=== PATIENT | female | born 1955 | race Caucasian/White ===

== ENCOUNTER → 2018-01-15 16:40 | Outpatient (CLI) | payer BC ==
[2014-11-28 20:53] VITALS: BMI 40.6
[~2018-01-15 16:40] MED LIST: ASPIRIN325 MG PO; COZAAR50 MG PO; PRILOSEC20 MG PO; TENORMIN50 MG PO
== END | disposition home or self-care (01) ==
LOC: D.MAMMO 11-13 08:30
DX: Z12.31 Encounter for screening mammogram for malignant neoplasm of breast (principal)

== ENCOUNTER 2019-03-25 08:00 | Outpatient (CLI) | payer BC ==
[2014-11-28 20:53] VITALS: BMI 40.6
== END 2019-03-25 09:00 | disposition home or self-care (01) ==
LOC: D.MAMMO 08:00
PROVIDERS: ATTEND Emergency Medicine
DX: Z12.31 Encounter for screening mammogram for malignant neoplasm of breast (principal)

== ENCOUNTER 2019-04-23 06:15 | Observation (INO) | payer BC ==
[~2019-04-23] VITALS: Ht 167.6 cm; Wt 112.5 kg
[2019-04-23] MEDS ORDERED: ZOLOFT50 MG PO (06:36)
[2019-04-23] MEDS ORDERED: TENORMIN100 MG PO (06:37)
[2019-04-23] MEDS ORDERED: HYDROCHLOROTH12.5 M1 PO (06:37)
[2019-04-23 06:45] VITALS: BP 157/81
[2019-04-23 06:57] LABS: BASOPHILS 0.5 % (0-2); EOSINOPHILS 1.3 % (0-7); HEMATOCRIT 42.4 % (36.0-48.0); HEMOGLOBIN 13.9 g/dL (12-16); IMMATURE GRANULOCYTES 0.2 % (0-5); LYMPHOCYTES 30.9 % (15-50); MCH 29.8 pg (26.0-34.0); MCHC 32.8 g/dL (31.0-37.0); MCV 90.8 fL (80.0-100.0); MEAN PLATELET VOLUME 10.2 fL (7.4-10.4); MONOCYTES 10.5 % (2-11); NEUTROPHILS 56.6 % (40-80); PLATELET COUNT 218 10x3/uL (130-400); RBC 4.67 10x6/uL (4.00-5.40); RDW 13.3 % (11.5-14.5); WBC 8.4 10x3/uL (4.8-10.8)
[2019-04-23 07:06] LABS: APTT 24.7 SECONDS (22.8-39.4); INR 1.01 (0.85-1.17); PROTIME 12.8 SECONDS (11.6-15.0)
[2019-04-23 07:10] VITALS: BP 172/71
[2019-04-23 07:11] LABS: ALBUMIN 3.4 g/dL (3.4-5.0); ALKALINE PHOSPHATASE 103 U/L (46-116); ALT (SGPT) 21 U/L (10-68); BILIRUBIN - TOTAL 0.28 mg/dL (0.2-1.3); CALC OSMOLALITY 284 mosm/kg (275-300); CARBON DIOXIDE 33.8 mmol/L (21.0-32.0); CHLORIDE - SERUM 102 mmol/L (98-107); CREATININE - SERUM 1.1 mg/dL (0.6-1.3); GLUCOSE 120 mg/dL (74-106); PROTEIN - SERUM 6.8 g/dL (6.4-8.2); SODIUM 141 mmol/L (136-145); UREA NITROGEN 22 mg/dL (7-18); eGFR NON AFRICAN AMERICAN 53 mL/min (90-120)
[2019-04-23 07:22] LABS: CKMB 1.1 U/L (0.0-3.6); CREATINE KINASE 49 UL (21-215); MAGNESIUM - SERUM 2.1 mg/dL (1.8-2.4); TROPONIN-I < 0.017 ng/mL (0.000-0.060)
[2019-04-23 07:31] VITALS: BP 164/87
--- NOTE | 2019-04-23 07:39 | NUR ---
[facility] CONTACTED RE: PT GLASSES. STATES EMS HAD THEM PRIOR TO TRANSPORT TO ED ET THEY ARE NOT IN ED AT THIS TIME. [facility] DISPATCH WILL CONTACT TRUCK AND HAVE THEM LOOK.
--- NOTE | 2019-04-23 07:40 | NUR ---
PT STATES THAT SHE WAS WALKING TO [employer] ROOM AT 0505 THIS AM. STATES WHILE SITTING ON TOILET SHE NOTED A SUDDEN ONSET OF L ARM/L LEG NUMBNESS, WEAKNESS, ET HEAVINESS. STATES WAS UNABLE TO SPRING TACKER WITH L HAND TO PULL UP PANTS. PT SCORED 2 ON NIHSS BY DORINDA NEUROLOGIST.
--- NOTE | 2019-04-23 07:51 | NUR ---
[facility] CALLS ET THEY DO HAVE PT GLASSES. THEY WILL RETURN THEM TO PT AROUND 0900 TODAY.
[2019-04-23 10:58] VITALS: BMI 40.1
[2019-04-23 11:22] LABS: CKMB 0.9 U/L (0.0-3.6); CREATINE KINASE 56 UL (21-215); MAGNESIUM - SERUM 2.1 mg/dL (1.8-2.4); PHOSPHOROUS 4.2 mg/dL (2.5-4.9)
[2019-04-23 11:24] LABS: TROPONIN-I < 0.017 ng/mL (0.000-0.060)
[2019-04-23] MEDS ORDERED: OMEPRAZOLE20 M1 PO (11:37)
[2019-04-23] MEDS ORDERED: LIPITOR20 MG PO (11:38)
--- NOTE | 2019-04-23 13:17 | NUR ---
PT LYING IN BED AAO X4 TO PERSON, PLACE, TIME, AND SITUATION. STATES SHE HAS SOME SLIGHT NUMBNESS IN HER L JAW. DENEIS ANY WEAKNESS, TINGLING, OR NUMBESS ANYWHERE ELSE CL IN REACH. SIDE RAILS UP X3 FOR PT SAEFTY. BED IN LOWEST POSITION.
[2019-04-23 17:04] LABS: CKMB 0.7 U/L (0.0-3.6); CREATINE KINASE 48 UL (21-215)
[2019-04-23 17:14] LABS: TROPONIN-I < 0.017 ng/mL (0.000-0.060)
[2019-04-23 18:35] VITALS: BP 117/44
[2019-04-23 20:00] VITALS: BP 118/70
--- NOTE | 2019-04-23 20:00 | NUR ---
ALERT AND ORIENTIATED SITTING UP IN BED, MOVES ALL EXTREMITIES WELL, LEFT HAND LOADER MACHINE SIGHTLY WEAKER THAN RIGHT, SPEECH CLEAR, DENIES PAIN, SEE SHIFT ASSESSMENT, CALL LIGHT IN REACH
[2019-04-23 22:46] LABS: CKMB 0.5 U/L (0.0-3.6); CREATINE KINASE 44 UL (21-215); TROPONIN-I < 0.017 ng/mL (0.000-0.060)
[2019-04-24] VITALS: BP 122/84
[2019-04-24 04:00] VITALS: BP 117/47
[2019-04-24 05:11] LABS: BASOPHILS 0.6 % (0-2); EOSINOPHILS 2.3 % (0-7); HEMOGLOBIN 14.3 g/dL (12-16); IMMATURE GRANULOCYTES 0.3 % (0-5); LYMPHOCYTES 33.9 % (15-50); MCH 30.3 pg (26.0-34.0); MCHC 33.3 g/dL (31.0-37.0); MCV 91.1 fL (80.0-100.0); MEAN PLATELET VOLUME 10.5 fL (7.4-10.4); MONOCYTES 9.6 % (2-11); NEUTROPHILS 53.3 % (40-80); PLATELET COUNT 231 10x3/uL (130-400); RBC 4.72 10x6/uL (4.00-5.40); RDW 13.4 % (11.5-14.5); WBC 6.9 10x3/uL (4.8-10.8)
[2019-04-24 06:01] LABS: ALBUMIN 3.2 g/dL (3.4-5.0); ANION GAP 11.3 mmol/L (8-16); BILIRUBIN - TOTAL 0.26 mg/dL (0.2-1.3); CALCIUM 9.2 mg/dL (8.5-10.1); CARBON DIOXIDE 32.2 mmol/L (21.0-32.0); CHOL - HDL RATIO 2.7 ratio (2.3-4.1); CREATININE - SERUM 1.1 mg/dL (0.6-1.3); LDL-HDL RATIO 1.2 ratio (1.5-3.5); PROTEIN - SERUM 6.5 g/dL (6.4-8.2)
[2019-04-24 06:10] LABS: POTASSIUM - SERUM 3.5 mmol/L (3.5-5.1)
[2019-04-24 09:38] VITALS: BP 146/63
--- NOTE | 2019-04-24 10:53 | MORECARE ---
CASE MANAGEMENT DISCHARGE SUMMARY PATIENT: IDALIA PRADO UNIT: [id number] ADM DATE: 04/23/19 AGE: 63 : 59 SEX: F ROOM/BED: D.2228 AUTHOR: LATESHA FLORENCE PHYSICIAN: REFERRING PHYSICIAN: ANGEL ASHBY MD DATE OF SERVICE: 04/24/19 Discharge Plan Patient Name: IDALIA PRADO [facility] [facility] 1955 Planned Disposition: Home Anticipated Discharge Date: Discharge Date: Expected LOS: Initial Reviewer: [email or web address] Initial Review Date: 04/24/2019 Generated: 04/24/19 11:52 am DCPIA - Discharge Planning Initial Assessment Updated by [email or web address]: Olivia Chow on 04/24/19 10:51 am * Is the patient Alert and Oriented? Yes * How many steps to enter\exit or inside your home? 3/0 * PCP Dr. Jasmyn Mazariegos * Pharmacy [facility] * Preadmission Environment Home Alone * ADLs Independent * Equipment None * List name and contact numbers for known caregivers / representatives who currently or will assist patient after discharge: Marcell Prado - son - [phone] Henny Flores - sister - [phone] * Verbal permission to speak to the caregivers and representatives has been obtained from the patient. Yes * Community resources currently utilized None * Additional services required to return to the preadmission environment? No * Can the patient safely return to the preadmission environment? Yes * Has this patient been hospitalized within the prior 30 days at any hospital? No Patient Name: IDALIA PRADO Page [id number] at 1053 All edits/amendments must be made on the electronic document DICTATION DATE: 04/24/19 105 HUNTER TRAPPER: GIOVANNY 04/24/19 105 RPT#: [id number] DC DATE: STATUS: ADM IN [facility] [address] [place] [address] END OF REPORT
[2019-04-24 10:57] VITALS: Ht 167.6 cm; Wt 112.5 kg
--- NOTE | 2019-04-24 11:00 | MORECARE ---
CASE MANAGEMENT DISCHARGE SUMMARY PATIENT: IDALIA PRADO UNIT: [id number] ADM DATE: 04/23/19 AGE: 63 : 59 SEX: F ROOM/BED: D.2228 AUTHOR: LUDIVINA,DOC PHYSICIAN: REFERRING PHYSICIAN: ANGEL ASHBY MD DATE OF SERVICE: 04/24/19 Discharge Plan Patient Name: IDALIA PRADO Facility: [facility]:[place] : 1955 Planned Disposition: Home Anticipated Discharge Date: Discharge Date: Expected LOS: Initial Reviewer: [email or web address] Initial Review Date: 04/24/2019 Generated: 04/24/19 12:00 pm Comments DCP- Discharge Planning Updated by [email or web address]: Olivia Chow on 04/24/19 9:[address] Patient Name: IDALIA PRADO Admission Status: ER Accout number: [id number] Admission Date: 04-23-2019 : 1955 Admission Diagnosis: Attending: SYMONE, Current LOS: 1 Anticipated DC Date: Planned Disposition: Home Primary Insurance: [employer] O Discharge Planning Comments: CM met with patient to complete initial dc planning assessment. CM educated patient on the CM role and verbal consent given by patient to complete assessment. Patient lives at home alone. At discharge patient plans to return and feels this is a safe discharge. CM discussed availability of home health, rehab services, and medical equipment. Patient denied known discharge needs at this time. States her sister lives next door and "a lot of my family live close by". States one of her family members will take her home on discharge. CM will continue to follow and will assist as needed with dc plans/needs. Educational Guidance Counselor: Olivia Chow DCPIA - Discharge Planning Initial Assessment Updated by [email or web address]: Olivia Chow on 04/24/19 10:51 am * Is the patient Alert and Oriented? Yes * How many steps to enter\\exit or inside your home? 3/0 * PCP Dr. Jasmyn Mazariegos * Pharmacy [facility] * Preadmission Environment Home Alone * ADLs Independent * Equipment None * List name and contact numbers for known caregivers / representatives who currently or will assist patient after discharge: Marcell Prado - [facility] - [phone] Henny Flores [facility] - [phone] * Verbal permission to speak to the caregivers and representatives has been obtained from the patient. Yes * Community resources currently utilized None * Additional services required to return to the preadmission environment? No * Can the patient safely return to the preadmission environment? Yes * Has this patient been hospitalized within the prior 30 days at any hospital? No Last DP export: 04/24/19 9:53 a Patient Name: IDALIA PRADO Page [id number] at 1100 All edits/amendments must be made on the electronic document DICTATION DATE: 04/24/191058 FINGERPRINT TECHNICIAN: GIOVANNY 04/24/191058 RPT#: [id number] DC DATE: STATUS: ADM IN [address] [place] [address] END OF REPORT
[2019-04-24] MEDS ORDERED: CLARITIN 10 MG10 MG PO (11:06)
[2019-04-24] MEDS ORDERED: ASPIRIN81 MG PO (11:06)
[2019-04-24 13:22] LABS: % SATURATION 13 % (15-55); IRON 42 ug/dl (35-150); TOTAL IRON BIND CAPACITY 307 ug/dl (260-445); UNSAT IRON BIND CAPACITY 265 ug/dl (150-375)
[2019-04-24 13:35] LABS: FERRITIN 138 ng/mL (3-244); LDH 261 U/L (81-234)
[2019-04-24 14:11] VITALS: BP 113/56
--- NOTE | 2019-04-24 14:54 | NUR ---
PT RESTING IN BED. NO SIGNS OF DISTRESS. IV TO RIGHT AC PATENT NO REDNESS OR TENDERNESS. ON TELEMETRY 59 SB. DENIES ANY FUTHER NEED AT THIS TIME. CALL LIGHT IN REACH. BED LOW POSITION. NO FAMILY AT BEDSIDE AT THIS TIME.
--- NOTE | 2019-04-24 15:32 | NUR ---
DISCHARGE INSTRUCTIONS GIVEN. SEEMS TO UNDERSTAND. IV OUT TIP INTACT. TELEMETRY OFF. LEFT WITH HOSPITAL STAFF TO GO HOME IN PERSONAL RIDE.
--- NOTE | 2019-04-24 18:34 | NUR ---
OT NOTE: PT COMPLETED BED MOB WITH SPV. PT COMPLETED ADL MOB WITH SBA/CGA. PT COMPLETED ORAL CARE AND HAIR GROOMING STANDING AT SINK WITH SBA/CGA. THANK YOU,LOU MERLOS
--- NOTE | 2019-04-25 11:57 | MORECARE ---
CASE MANAGEMENT DISCHARGE SUMMARY PATIENT: IDALIA PRADO UNIT: [id number] ADM DATE: 04/23/19 AGE: 63 : 59 SEX: F ROOM/BED: D.2228 AUTHOR: LUDIVINA,DOC PHYSICIAN: REFERRING PHYSICIAN: ANGEL ASHBY MD DATE OF SERVICE: 04/25/19 Discharge Plan Patient Name: IDALIA PRADO Facility: [facility]:[place] : 1955 Planned Disposition: Home Anticipated Discharge Date: Discharge Date: 04/24/2019 Expected LOS: 0 Initial Reviewer: [email or web address] Initial Review Date: 04/24/2019 Generated: 04/25/19 12:57 pm Comments DCP- Discharge Planning Updated by [email or web address]: Olivia Chow on 04/24/19 9:[address] Patient Name: IDALIA PRADO Admission Status: ER Accout number: [id number] Admission Date: 04-23-2019 : 1955 Admission Diagnosis: Attending: SYMONE, Current LOS: 1 Anticipated DC Date: Planned Disposition: Home Primary Insurance: [employer] [facility] Discharge Planning Comments: CM met with patient to complete initial dc planning assessment. CM educated patient on the CM role and verbal consent given by patient to complete assessment. Patient lives at home alone. At discharge patient plans to return and feels this is a safe discharge. CM discussed availability of home health, rehab services, and medical equipment. Patient denied known discharge needs at this time. States her sister lives next door and "a lot of my family live close by". States one of her family members will take her home on discharge. CM will continue to follow and will assist as needed with dc plans/needs. Explosive Specialist: Olivia Chow DCPIA - Discharge Planning Initial Assessment Updated by [email or web address]: Olivia Chow on 04/24/19 10:51 am * Is the patient Alert and Oriented? Yes * How many steps to enter\\exit or inside your home? 3/0 * PCP Dr. Jasmyn Mazariegos * Pharmacy [facility] * Preadmission Environment Home Alone * ADLs Independent * Equipment None * List name and contact numbers for known caregivers / representatives who currently or will assist patient after discharge: Marcell Prado - son - [phone] Henny Flores - sister - [phone] * Verbal permission to speak to the caregivers and representatives has been obtained from the patient. Yes * Community resources currently utilized None * Additional services required to return to the preadmission environment? No * Can the patient safely return to the preadmission environment? Yes * Has this patient been hospitalized within the prior 30 days at any hospital? No Last DP export: 04/24/19 10:00 a Patient Name: IDALIA PRADO Page 04035 at 1157 All edits/amendments must be made on the electronic document DICTATION DATE: 04/25/191156 GLUING CREW LEADER: GIOVANNY 04/25/19 1157 RPT#: [id number] DC DATE:04/24/19 STATUS: DIS IN [facility] [address] [place] [address] END OF REPORT
== END 2019-04-24 15:33 | disposition home or self-care (01) ==
LOC: D.ER 06:15 → D.MS 08:38 → OBSVTIME 08:38 → D.MS 08:38
PROVIDERS: Family Medicine; ADMIT Family Medicine; ATTEND Family Medicine
DX: R47.1 Dysarthria and anarthria (principal); I10 Essential (primary) hypertension; F32.9 Major depressive disorder, single episode, unspecified; R53.1 Weakness

== ENCOUNTER → 2020-06-02 20:43 | Outpatient (CLI) | payer MEDICAID ==
[2019-04-24 10:57] VITALS: BMI 40.0
[~2020-06-02 20:43] MED LIST changes: +ASPIRIN81 MG PO; +CLARITIN 10 MG10 MG PO; +HYDROCHLOROTH12.5 M1 PO; +LIPITOR20 MG PO; +OMEPRAZOLE20 M1 PO; +TENORMIN100 MG PO; +ZOLOFT50 MG PO
== END | disposition home or self-care (01) ==
LOC: D.MAMMO 05-19 11:30
PROVIDERS: ATTEND Emergency Medicine
DX: Z12.31 Encounter for screening mammogram for malignant neoplasm of breast (principal)

== ENCOUNTER 2020-06-16 22:17 | Emergency (ER) | payer MEDICAID ==
[~2020-06-16] VITALS: Ht 167.6 cm; Wt 113.6 kg
[2020-06-16 22:22] VITALS: Ht 167.6 cm; Wt 113.6 kg
[2020-06-16 23:01] LABS: BASOPHILS 0.3 % (0-2); EOSINOPHILS 0.5 % (0-7); HEMATOCRIT 42.6 % (36.0-48.0); HEMOGLOBIN 13.9 g/dL (12-16); IMMATURE GRANULOCYTES 0.2 % (0-5); LYMPHOCYTES 14.3 % (15-50); MCH 30.3 pg (26.0-34.0); MCHC 32.6 g/dL (31.0-37.0); MCV 92.8 fL (80.0-100.0); MEAN PLATELET VOLUME 10.6 fL (7.4-10.4); MONOCYTES 5.9 % (2-11); NEUTROPHILS 78.8 % (40-80); PLATELET COUNT 237 10x3/uL (130-400); RBC 4.59 10x6/uL (4.00-5.40); RDW 13.1 % (11.5-14.5); WBC 9.9 10x3/uL (4.8-10.8)
[2020-06-16 23:10] LABS: INR 0.96 (0.85-1.17); PROTIME 12.7 SECONDS (11.6-15.0)
[2020-06-16 23:12] LABS: CALC OSMOLALITY 290 mosm/kg (275-300); CALCIUM 9.8 mg/dL (8.5-10.1); CARBON DIOXIDE 31.6 mmol/L (21.0-32.0); CHLORIDE - SERUM 106 mmol/L (98-107); CREATININE - SERUM 1.2 mg/dL (0.6-1.3); POTASSIUM - SERUM 3.5 mmol/L (3.5-5.1); SODIUM 143 mmol/L (136-145); UREA NITROGEN 15 mg/dL (7-18); eGFR NON AFRICAN AMERICAN 48 mL/min (90-120)
[2020-06-16 23:14] LABS: GLUCOSE 197 mg/dL (74-106)
[2020-06-16 23:25] LABS: ALBUMIN 3.7 g/dL (3.4-5.0); ALKALINE PHOSPHATASE 102 U/L (30-120); ALT (SGPT) 25 U/L (10-68); BILIRUBIN - TOTAL 0.35 mg/dL (0.2-1.3); C-REACTIVE PROTEIN 1.8 mg/dL (0.0-0.9); CREATINE KINASE 85 UL (21-215); LIPASE 123 U/L (73-393); MAGNESIUM - SERUM 2.1 mg/dL (1.8-2.4); PRO BNP 171 pg/mL (0-125); PROTEIN - SERUM 7.3 g/dL (6.4-8.2); THYROID STIMULATING HORMONE 3.22 uIU/mL (0.36-3.74)
[2020-06-16 23:29] LABS: TROPONIN-I < 0.017 ng/mL (0.000-0.060)
[2020-06-16 23:58] LABS: UDS - AMPHET NEGATIVE QUAL (NEGATIVE); UDS - BARB NEGATIVE QUAL (NEGATIVE); UDS - BENZO NEGATIVE QUAL (NEGATIVE); UDS - COCAINE NEGATIVE QUAL (NEGATIVE); UDS - OPIATE NEGATIVE QUAL (NEGATIVE); UDS - PCP NEGATIVE QUAL (NEGATIVE); UDS - THC NEGATIVE QUAL (NEGATIVE)
[2020-06-17 00:02] LABS: BILIRUBIN NEGATIVE (NEGATIVE); GLUCOSE 100 mg/dL (NEGATIVE); KETONE NEGATIVE (NEGATIVE); NITRITE NEGATIVE (NEGATIVE); UROBILINOGEN NORMAL (NORMAL)
[2020-06-17 00:05] LABS: BACTERIA FEW /hpf (NEGATIVE); CALCIUM OXALATE CRYSTALS 0-5 /hpf (NONE SEEN); EPITHELIAL CELLS 0-5 /hpf (0-5); RED CELLS - URINE 0-5 /hpf (0-5); WHITE CELLS - URINE 0-5 /hpf (NEGATIVE)
[2020-06-17 00:34] VITALS: BP 127/31
== END 2020-06-17 00:44 | disposition home or self-care (01) ==
LOC: D.ER 22:17
PROVIDERS: Family Medicine
DX: R41.82 Altered mental status, unspecified (principal); R11.2 Nausea with vomiting, unspecified; Z86.73 Personal history of transient ischemic attack (TIA), and cerebral infarction without residual deficits; I10 Essential (primary) hypertension